=== PATIENT | female | born 1970 | race Caucasian/White ===

== ENCOUNTER → 2017-08-13 17:30 | Outpatient (CLI) | payer BC, SELFPAY | PROVIDERS: Visit Provider Otolaryngology Otolaryngology/Facial Plastic Surgery | DX: J32.9 Chronic sinusitis, unspecified (principal) | CPT/HCPCS: 87070; 87205 ==

== ENCOUNTER 2022-02-05 05:46 | Inpatient (IN) | payer BC, SELFPAY ==
--- NOTE | 2022-01-27 10:41 | CASEMGMT ---
FRANKIE VERMA Assessment: TC to pt for initial transition planning/care coordination assessment. RN CM introduced self and role at [facility], pt voices understanding and consents to assessment. Care providers, pharmacy, and demographics verified/updated. Admitting Dx: lumbar 4-5 posterior lumbar interbody fusion PCP:FELA Santoro Specialists:derrick Mcelroy Pharmacy: [facility] Retail while hospitalized Insurance: [place] Prescription Benefit: yes LW/HPOA: Pt states she has a LW/DPOA and her DPOA is her Santhosh Moreno. She is aware this is not on file at [facility] and she may bring in day of surgery to be scanned into her chart. LNOK: Santhosh Moreno, Living Arrangements: Pt lives with , mother and aunt in a two story house with 1 step to enter with a rail. Pt states she can stay on the main level of the home post surgery. Pt reports being I in ADL's currently. Transportation: Pt drives self and denies concerns with transportation. Pt can transport pt post surgery. DME/HHC/SNF: Pt has a cane and standard walker at home but does not use. Pt denies hx of HHC or SNF stays. Pt states no concerns with going home at time of dc. Pt states no further concerns/needs. CM to follow. Advised pt to ask CM if any further question/concerns/needs arise, voices understanding. Pt Goal: Home Plan: Home
[2022-02-05] VITALS (17 sets, daily range): BP systolic 115–135; BP diastolic 61–80; PULSE 72–94; RESP 14–18; TEMP 36.4–37.2; O2SAT 92–96; BMI 37.8
--- NOTE | 2022-02-05 06:30 | RAD_ITS ---
PROCEDURE: L4-L5 fusion. DATE OF EXAMINATION: 02/05/2022. INDICATION: Female, 51 years old. Chronic low back pain. FLUOROSCOPY TIME (if supplied): (1 minute and 57 seconds.) minutes/seconds. 4 images were obtained. RAD/Lumbar Spine 2 or 3 Views IMPRESSION: Intraoperative imaging provided for fusion at the L4-L5 level with prosthetic disc placement. Electronically Signed: Andre Gaffney MD at 12:41 EDT ,
[2022-02-05] MEDS: Lactated Ringers 1,000 ML 15 ML IV ×2 (06:58→08:15)
--- NOTE | 2022-02-05 07:05 | OP.PCM_ITS ---
Report of Operation Date of Procedure: 02/05/22 Pre-Operative Diagnosis: 1. Lumbar stenosis, L4-5 with spondylosis 2. Lumbar degenerative disc disease L4-5 Post-Operative Diagnosis: 1. Lumbar stenosis, L4-5 with spondylosis 2. Lumbar degenerative disc disease L4-5 Surgery/Procedure Performed:: 1. L4-5 posterior lumbar interbody fusion 2. Insertion of intervertebral biomechanical device x1 3. Structural allograft for spinal fusion 4. L4 bilateral laminectomies, foraminotomies, facetectomies, decompression of nerve roots 5. L4-5 posterior lateral fusion 6. Pedicle screw fixation 7. Local autograft for spinal fusion 8. Neuro monitoring bilateral upper and bilateral lower extremities Description of Surgical Findings:: The patient is a 51-year-old female with intractable back and leg pain. Image studies confirm the above diagnoses. She has failed conservative treatment to include medication physical therapy and injections. The patient opted for operative intervention understanding the risk to include but not limited to infection, bleeding, damage to nerves arteries and veins, possibility of spinal fluid leak, nonunion, hardware failure, continued pain, need for further surgery, deep vein thrombosis, pulmonary embolism, heart attack, risk of stroke or . The patient was identified in the preoperative holding area. There she received preoperative IV antibiotics Ancef and was then transferred to the operative suite. Once in the operative suite after general endotracheal anesthesia was established the patient was positioned prone on the Luis Manuel operating table. All bony prominences were padded accordingly. The lumbar spine was prepped and draped in a standard fashion. Bear hugger's were not turned on until the drapes were placed and sealed with Ioban. A midline incision was made and taken to the level of the lumbodorsal fascia. The fascia was divided and subperiosteal dissection was taken down to the level of the transverse processes of L4 and L5 bilaterally. Deep retractors were placed. A bone scalpel was used to make cuts in the lamina of L4 and then a series of rongeurs and Kerrisons were used removing the spinous process and lamina at L4. Then facetectomies of greater t michael 50% were performed as well as foraminotomies decompressing the bilateral nerve roots. Given the severity of the stenosis I needed to perform wide bilateral laminectomies and near complete facetectomies in order to decompress the neural elements thus creating instability necessitating the fusion. I then proceeded with interbody fusion. The nerve roots and dura were identified and retracted medially. A knife was used to perform an annulotomy at L4-5. An endplate elevator, curettes and pituitaries were utilized to remove disc material. Endplates were prepared with a rasp. An appropriate sized intervertebral peek cage device measuring 9 mm was packed with morselized cancellous allograft and impacted into position completing the posterior lumbar interbody fusion at L4-5. I then proceeded with pedicle screw fixation. Starting points were found at the junction of the superior articular process and transverse processes of L4 and L5. A power bur was used for the starting points. Pedicle probes were placed bilaterally and then 6.5 x 50 mm screws were placed bilaterally at L4 and L5. The screws were tested with intraoperative neurophysiologic monitoring and tested within normal limits. Connecting rods were placed and secured with set screws. I then proceeded with the posterior lateral fusion. This was accomplished by decorticating the transverse processes bilaterally at L4 and L5. This decorticated bone was then bridged with local autograft from the decompression as well as morselized cancellous allograft therefore completing the posterior lateral fusion at L4-5. The incision was thoroughly irrigated. Tisseel was placed over the dura as a hemostatic agent. A deep drain was placed. The fascia was closed with #1 Vicryl, subcutaneous with 2-0 Vicryl and skin with 2-0 nylon. A sterile dressing was applied with 4 x 4's ABD and tape. Sponge instrument and needle counts were correct at the end the case. The patient was extubated and taken to the PACU without incident Surgeon: Dharmesh Mcelroy Type of Anesthesia: General Drains: Hemovac Estimated Blood Loss (mL): 250 cc Fluids Replaced: 2600 cc Grafts/Implants Used: Unified spine, talos, vitae os, DBM Complications None Admit VTE Documentation VTE Present on Admission: No
--- NOTE | 2022-02-05 07:05 | PCM.PN.ORT ---
Subjective Subjective The patient was seen and examined postoperatively in the PACU. She is lying in bed resting comfortably. Her pain is controlled. She denies any other complaints including numbness tingling or weakness Objective Data Objective Data Vital Signs: Vital Signs Temp Pulse Resp BP Pulse Ox O2 Del Method 98.3 F 77 16 123/77 H 96 Room Air 02/05/22 06:48 02/05/22 06:48 02/05/22 06:48 02/05/22 06:48 02/05/22 06:48 02/05/22 06:48 Oxygen Delivery Method Room Air Weight: 220 lb 3.869 oz Body Mass Index (BMI) 37.8 Physical Exam Const alert, oriented x3 and no apparent distress General Appearance: cooperative, comfortable and well kempt HEENT normocephalic and head/scalp atraumatic Eyes EOMs intact bilaterally and conjunctivae normal Neck full ROM General: normal visual inspection Chest inspection of chest normal and palpation of chest normal Resp normal respiratory effort and normal air movement Cardio regular rate, regular rhythm and peripheral pulses 2+ throughout GI soft to palpation, non-tender and non-distended Back/Spine Back/Spine Narrative: Dressing clean dry and intact. Drain in place and functioning with small amount of serosanguineous fluid present Cervical Spine: cervical ROM normal Thoracic Spine / Upper Back: normal to inspection Lumbar Spine / Lower Back: normal to inspection Extremity normal to inspection, full ROM, normal capillary refill, no clubbing, cyanosis or edema and no calf tenderness Skin no rashes or lesions noted General Skin Exam: no breakdown Neuro oriented x3, CN's II-XII intact bilaterally, moves all extremities, no focal motor deficits, no sensory deficits noted and deep tendon reflexes 2+ bilaterally Motor Exam: strength 5/5 throughout Assessment & Plan Assessment/Plan (1) Lumbar stenosis: PLAN: Plan Okay to admit to floor See orders Pain control and mobilization as tolerated Back brace on at all times while out of bed Continue antibiotics while drain in place Discharge planning, likely home tomorrow
--- NOTE | 2022-02-05 07:05 | PCM.DC.SUM ---
Providers Date of Admission: 02/05/22 Primary Care Physician: FELA Santoro Reason For Visit: lumbar 4-5 posterior lumbar interbody fusion Diagnosis Discharge Diagnosis (1) Lumbar stenosis: Status: Acute Code(s): M48.061 - Spinal stenosis, lumbar region without neurogenic claudication Medications at Discharge Home Medications hydrocodone-acetaminophen 5-325mg 5mg-325mg 1 tab PO Q6H 7 days #28 tabs 02/06/22 Hospital Course Operations - (L4-5 posterior lumbar interbody fusion, decompression, posterior spinal fusion with instrumentation, use of allograft) Summary of Care Provided Minutes Spent on Discharge: 15 Hospital Course: The patient is a 51-year-old female who underwent an L4-5 posterior lumbar interbody fusion, decompression, posterior spinal fusion, use of allograft on 02/05/2022. She was subsequently admitted. The hospitalist was consulted for medical management. She progressed well. Her pain was controlled and she was mobilizing well. Her drain was pulled on postoperative day 1. No significant medical issues were reported and she was subsequently discharged home upon 02/06/2022 to follow-up with Dr. Mcelroy in 3 weeks Physical Exam Const alert, oriented x3 and no apparent distress General Appearance: cooperative, comfortable and well kempt HEENT normocephalic and head/scalp atraumatic Eyes EOMs intact bilaterally and conjunctivae normal Neck full ROM General: normal visual inspection Chest inspection of chest normal and palpation of chest normal Resp normal respiratory effort and normal air movement Effort and Inspection: able to speak in complete sentences Cardio regular rate and peripheral pulses 2+ throughout GI soft to palpation, non-tender and non-distended Back/Spine Back/Spine Narrative: Dressing clean dry and intact. Incision well approximated with interrupted sutures in place. No tenderness erythema drainage or fluctuance Cervical Spine: cervical ROM normal Thoracic Spine / Upper Back: normal to inspection Lumbar Spine / Lower Back: normal to inspection Extremity normal to inspection, full ROM, normal capillary refill, no clubbing, cyanosis or edema and no calf tenderness Skin no rashes or lesions noted General Skin Exam: no breakdown Neuro oriented x3, CN's II-XII intact bilaterally, moves all extremities, no focal motor deficits, no sensory deficits noted and deep tendon reflexes 2+ bilaterally Motor Exam: strength 5/5 throughout Weight / BMI Weight Weight: 220 lb 3.869 oz Body Mass Index (BMI) 37.8 D/C Instructions Discharge Diet: No restrictions Weight Bearing Status: Weight bearing as tolerated Lifting Restricted to (Lbs): 5 Additional Activity Instructions: No repetitive bending twisting or lifting greater than 5 pounds. Wear back brace on at all times while out of bed Call your doctor if your incision/area has: Continuous Slow Oozing, Sudden Increased Bleeding, Increased Pain/ Swelling, Increased Redness, Foul Smelling Discharge and Swelling at the incision site Call your doctor if you observe: Fever of 101 or Higher, Coldness, Increased Pain, Numbness or Tingling, Change in Color, Inability to urinate, Inability to have a bowel movement, Using more than 1 pad per hour, Shortness of breath, Dizziness, Fainting spells, Swelling in the ankles, Chest pain, Prolonged hiccupping, Increased palpitations (irregular heartbeat), Calf discomfort and Uncontrolled pain Cleanse incision/area with: Do not get Incision Wet and Keep Dressing Clean & Dry Additional Dressing/Incision Instructions: Change dressing daily with iodine gauze and tape. [place] dressing to shower Please Follow Up With: Dharmesh Mcelroy DO When: 3 weeks Meaningful Use Info Meaningful Use Diagnoses (Choose all that apply): None applicable Discharge Plan Admission Admit Date/Time: 02/05/22 05:46 Attending Provider: Dharmesh Mcelroy Primary Care Provider: Stephanie Zhao Consulting Providers: Ezio Frances Instructions Additional Instructions / Restrictions: 1. During your procedure, you received sedation through your IV. Please follow these instructions for the next 24 hours: Do not drive a motor vehicle, do not drink any alcoholic beverages, and do not sign any legal documents or make personal or business decisions. A responsible adult should stay with you at least 6 hours after the procedure. 2. Keep your surgical site/incision clean and the dressing dry and intact. Change dressing daily. You may use an ice pack at the surgical site to reduce any swelling or discomfort. 3. Monitor the incision site for any signs or symptoms of infection. Watch for redness, excessive swelling or drainage, or continued pain at the incision site after 3 days. Contact your physician immediately for a fever, chills or a temperature of 101.5? F or greater. 4. Take your medication exactly as prescribed by your physician. Do not attempt to wean yourself off any of your medications even though your pain is improving. This process needs to be carefully monitored by your doctor. Take any antibiotics prescribed exactly as directed and until they are gone. 5. Avoid stretching, bending, pulling, twisting or any sudden movements. Do not bend or twist at the waist. Wear your back brace at all times while out of bed 6. No lifting greater than 5 pounds. 7. Do not operate a motor vehicle, equipment or a power tool while taking pain medication 8. Do not have any manipulation done by a chiropractor or any other physician without first consulting with the surgeon 9. Please contact our office if you are even scheduled for a CT scan or an MRI. 10. Please call us if you have any questions, problems or concerns. Discharge Orders/Prescriptions Prescriptions: New hydrocodone-acetaminophen 5-325 mg tablet 1 tab PO Q6H 7 Days Qty: 28 0RF Referrals / Follow Up: Dharmesh Mcelroy DO [Med Staff - Active Staff] - Stephanie Zhao, PA [Primary Care Provider] - Disposition Disposition (needs filled in before D/C Order can be placed): Home, Self Care
[2022-02-05] MEDS: Cefazolin 2 GM in 0.9% Normal Saline 100 ML IV (08:08)
[2022-02-05] MEDS: THROMBIN (RECOMBINANT) 20,000 UNIT VIAL 20000 UNIT TOPICAL (08:20)
[2022-02-05] MEDS: Heparin 10,000 UNITS/10 ML Vial 10000 UNITS (08:20)
[2022-02-05] MEDS: Lactated Ringers 1,000 ML 100 ML IV ×2 (09:31→16:12)
[2022-02-05] MEDS: Cefazolin 1 GM/50 ML BAG IV (16:12)
[2022-02-05] MEDS: Acetaminophen 500 MG Tablet 1000 MG PO ×2 (16:12→22:35)
[2022-02-05] MEDS: 0.9% Saline Lock 10 ML Syringe IV (19:09)
[2022-02-06 00:02] VITALS: PULSE 63
[2022-02-06] MEDS: Cefazolin 1 GM/50 ML BAG IV (01:04)
[2022-02-06 02:43] VITALS: BP 98/58; PULSE 72; RESP 16; TEMP 36.8; O2SAT 94
[2022-02-06 04:08] VITALS: PULSE 74
[2022-02-06] MEDS: Acetaminophen 500 MG Tablet 1000 MG PO (06:13)
[2022-02-06 06:43] VITALS: BP 118/72; PULSE 81; RESP 16; TEMP 36.8; O2SAT 96
[2022-02-06 07:00] VITALS: PULSE 86
[2022-02-06] MEDS: Ensure Surgery 237 ML LIQUID PO (08:10)
[2022-02-06 10:00] VITALS: BP 104/60; PULSE 78; PULSE 79; RESP 18; TEMP 37.1; O2SAT 98
--- NOTE | 2022-02-06 10:12 | CASEMGMT ---
FRANKIE CM in to pt room, pt dressed and ready for dc. Pt has a FWW at home should she need it. Pt denies any homegoing needs at this time.
[2022-02-06] MEDS: oxyCODONE 5 MG Tablet PO (10:31)
== END 2022-02-06 10:52 | disposition home or self-care (01) | DRG 460 ==
LOC: ACINP 07:10 → MS3 02-06 09:02
PROVIDERS: Admitting Provider Orthopaedic Surgery; PCP Physician Assistant; Referring Provider Orthopaedic Surgery; Visit Provider Orthopaedic Surgery
PROC: 0SG00AJ Fusion of Lumbar Vertebral Joint with Interbody Fusion Device, Posterior Approach, Anterior Column, Open Approach (ICD-10-PCS; CPT 22630; principal; 2022-02-05 07:00)
DX: M48.061 Spinal stenosis, lumbar region without neurogenic claudication (principal); M41.86 Other forms of scoliosis, lumbar region; M46.96 Unspecified inflammatory spondylopathy, lumbar region; M47.816 Spondylosis without myelopathy or radiculopathy, lumbar region; M51.36 Other intervertebral disc degeneration, lumbar region; M51.26 Other intervertebral disc displacement, lumbar region; Z92.241 Personal history of systemic steroid therapy; Z97.3 Presence of spectacles and contact lenses; Z98.1 Arthrodesis status
CPT/HCPCS: 72020; 72100; 76000; 99251; 99406; C1776; J7120; A4216; G0463

== ENCOUNTER 2024-02-08 08:28 | Day surgery (SDC) | payer BC, SELFPAY ==
[2024-02-08] VITALS (7 sets, daily range): BP systolic 106–109; BP diastolic 71–91; PULSE 71–89; RESP 12–18; TEMP 35.6–36.7; O2SAT 92–100; BMI 26.4
--- NOTE | 2024-02-08 08:39 | PRE.ANES_ITS ---
ASA Classification* ASA Classification ASA Classification: 2 Assessment & Plan Anesthesia* Anesthesia Assessment Anesthesia Assessment: Discussed sedation and/or anesthesia options, risks, benefits, and alternatives with patient/parents/legal guardian/POA. Questions invited. The patient/parents/legal guardian/POA seems to understand and agrees to proceed with anesthesia plan. Reviewed the physical assessment, medical history, allergy history and patient home medications list prior to surgery/procedure/anesthetic and documented any changes. Performed airway and anesthesia risk assessments. 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 When Was Last Pacemaker Check QUESTION #4 FULL TEXT: You/Your Family Experience fever (hyperthermia) with Anesthesia Last Oral Intake Last Oral intake: Last Oral Intake NPO since Meds taken in AM with sips of water? 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 Female Yes 02/04/24 10:39 HX of Motion Sickness No 02/04/24 10:39 HX of N/V After Surgery No 02/04/24 10:39 Non-Smoker No 02/04/24 10:39 Duration of Surgery greater No 02/04/24 10:39 than 60 minutes Number of Risk Factors 1 02/04/24 10:39 PONV Score Low Risk 02/04/24 10:39 Height & Weight Height & Weight: Anesthesia: Height & Weight Height 5 ft 4 in 01/26/24 08:52 Respiratory Assessment Respiratory Assessment - forge utility worker: Respiratory Tract Infection Hx - forge utility worker Hx Respiratory Tract Infection No 02/04/24 10:39 STOP Sleep Apnea STOP Sleep Apnea - forge utility worker: STOP Sleep Apnea - forge utility worker Hx Hypertension No 02/04/24 10:39 Hx Sleep Apnea No 02/04/24 10:39 CPAP BIPAP Do you snore loudly (louder No 02/04/24 10:39 than talking or can be heard Do you often feel tired/ No 02/04/24 10:39 fatigued/ sleepy during daytime? Has anyone observed you stop No 02/04/24 10:39 breathing during sleep? STOP Results Negative 02/04/24 10:39 QUESTION #5 FULL TEXT : Do you snore loudly (louder than talking or can be heard through closed doors)? 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 Specify any problems Hx of Preganancy in last 3 N/A 02/04/24 10:39 Months Nurse Filling Out Transfusion NBUCHER 02/04/24 10:39 & Questions: Date: 02/04/24 02/04/24 10:39 Time: 10:40 02/04/24 10:39 Patient unable to answer at this time (ie. confused, unrespo /Reproduction History /Reproductive History - forge utility worker: /Reproductive Hx- forge utility worker Hx Now Gestational Age (in weeks): EDC: Hx Hx Para Hx Section SAB No 02/04/24 10:39 Active Medications Active Medications: Current Medications Generic Name Dose Route Start Last Admin Trade Name Freq PRN Reason Stop Dose Admin Lactated Ringer's 1,000 mls @ 15 mls/hr 02/08/24 08:45 IV .Q48H JEROME PFSH Medical History Arthritis History of hiatal hernia Gastric reflux Heartburn Wears glasses Alcohol use History of steroid therapy Easy bruising Back pain Smoker History of stress test Home Medications ?Medication ?Instructions ?Recorded ?Last Taken ?Type semaglutide (weight loss) 1.7 1.7 mg subcut TU 01/26/24 02/01/24 History mg/0.75 mL subcutaneous pen injector (Wegovy) acetaminophen 500 mg tablet 500 mg PO Q6H PRN pain 02/04/24 Unknown History (Acetaminophen Extra Strength) Allergy/AdvReac Type Severity Reaction Status Date / Time No Known Allergies Allergy Verified 02/04/24 10:37 Family History Mother Diabetes Father Diabetes Surgical History History of colonoscopy History of esophagogastroduodenoscopy (EGD) History of History of selective injection of anesthetic agent around lumbar nerve root History of total right knee replacement History of arthroscopy of right knee History of fusion of cervical spine History of eye surgery History of carpal tunnel surgery History of bladder repair surgery History of hysterectomy History of cholecystectomy History of tonsillectomy Social History Smoking Status: Current some day smoker tobacco type: cigarettes and e-cigarett es alcohol intake: never substance use type: does not use Review of Systems (Anesthesia) ROS Narrative System reviewed and no additional complaints, except as documented.
[2024-02-08] MEDS: Lactated Ringers 1,000 ML 15 ML IV (08:59)
--- NOTE | 2024-02-08 09:45 | IMM_PTH ---
PATIENT: ROSHNI HERNÁNDEZ LOC: EN U#:[id number] AGE/SX: 53/F ROOM: RE02/08/[address]: Dr. Luis Green MD : 1970 BED: DIS: 02/08/2024 SPEC #: [id number] RECD: 02/09/24 08:23 STATUS: RADHIKA REQ #: [id number] JACQUE: 02/08/24 09:[address]: Luis Green DEPT: IMMUNOHISTOCHEMISTRY RECD BY: Hugo Muñoz ENTERED: 02/09/24 08:23 SP TYPE: IMMUNO OTHR DR: FELA Santoro Tissues: A - Gastric mucous membrane Procedures: H Pylori (initial) PHYSICIAN & INSTITUTION [place] [address] SPECIMEN INFORMATION: Tissue Source: A- Antrum biopsy Clinical Info: Rectal bleeding Specimen Number: [id number] CPT code: 53314 METHODOLOGY: Deparaffinized sections of prefer/formalin-fixed tissue or PAP/DQ stained slides are incubated with monoclonal/polyclonal antibodies/oligonucleotide probes. Localization is made via biotin free immunoperoxidase method. Appropriate controls are performed and reacted as expected. Results on target cell population are indicated in the following table: RESULTS: ANTIBODY / CLONE RESULT Block A H Pylori (polyclonal) negative These tests were developed and their performance characteristics determined by [facility]. They may not have been cleared or approved by the U.S. Food and Drug Administration. The FDA has determined that such clearance or approval is not necessary. The above immunohistochemical/dualISH markers are ordered and reviewed by the Pathologist. INTERPRETATION: A. Antrum, biopsy: Negative for Helicobacter pylori organisms. 02/10/2024
--- NOTE | 2024-02-08 09:45 | COLBX_PTH ---
PATIENT: ROSHNI HERNÁNDEZ LOC: EN U#:[id number] AGE/SX: 53/F ROOM: RE02/08/[address]: Dr. Luis Green MD : 1970 BED: DIS: 02/08/2024 SPEC #: [id number] RECD: 02/08/24 18:13 STATUS: RADHIKA SOLOMON #: [id number] JACQUE: 02/08/24 09:[address]: Luis Green DEPT: SURGICAL PATHOLOGY RECD BY: Mike Manzanares ENTERED: 02/09/24 10:01 SP TYPE: COLON BX OTHR DR: FELA Santoro Tissues: A - Gastric mucous membrane B - Stomach, NOS C - Esophagus, NOS Procedures: Special Stain Group I Surgery Specimen Level IV Alcian Blue/PAS (control) HEADER OPERATION: Colonoscopy, EGD with biopsies PRE-OP DIAGNOSIS: Rectal bleeding TISSUE SUBMITTED: A- Antrum biopsy, B- Stomach polyp biopsy x2, C- GE junction biopsy MICROSCOPIC DIAGNOSIS A. Gastric antrum, biopsy: Mild chronic gastritis. See comment. B. Gastric polyp, biopsy: Consistent with fundic gland polyp. C. Gastroesophageal junction, biopsy: Mild chronic inflammation. Focal changes of reflux. No evidence of goblet cell metaplasia. See comment. 02/10/2024 COMMENT A. The results of immunohistochemistry for Helicobacter pylori will be reported separately ([id number]). C. Alcian blue/PAS stain with matched control is used in the evaluation of the specimen. MICROSCOPIC DESCRIPTION Slides are reviewed. GROSS DESCRIPTION A. Received in fixative is one container labeled with the patient's name and designated Antrum biopsy. The specimen consists of one irregular fragment of light martinez soft tissue that measures 0.4 x 0.3 x 0.1 cm. The specimen is totally submitted in one cassette. B. Received in fixative is one container labeled with the patient's name and designated Stomach polyp biopsy x2. The specimen consists of two irregular fragments of light martinez soft tissue that in aggregate measure 0.7 x 0.4 x 0.2 cm. The specimen is totally submitted in one cassette. C. Received in fixative is one container labeled with the patient's name and designated GE junction biopsy. The specimen consists of two irregular fragments of light martinez soft tissue that in aggregate measure 0.5 x 0.5 x 0.1 cm. The specimen is totally submitted in one cassette. SJ.mr 02/09/2024 TC:3 CPT:85715i3,93631
--- NOTE | 2024-02-08 10:13 | PCM.HP.STD ---
HPI - General General Date of Admission: 02/08/24 Date of Service: 02/08/24 Chief Complaint: Blood per rectum HPI Narrative ROSHNI HERNÁNDEZ, is a 53 F who presents for EGD and colonoscopy. She has had a couple recent episodes of blood per rectum. She also history of upper GI discomfort/reflux. She presents today for EGD and colonoscopy. [facility] Medical History Arthritis History of hiatal hernia Gastric reflux Heartburn Wears glasses Alcohol use History of steroid therapy Easy bruising Back pain Smoker History of stress test Home Medications ?Medication ?Instructions ?Recorded ?Last Taken ?Type semaglutide (weight loss) 1.7 1.7 mg subcut TU 01/26/24 02/01/24 History mg/0.75 mL subcutaneous pen injector (Wegovy) acetaminophen 500 mg tablet 500 mg PO Q6H PRN pain 02/04/24 Unknown History (Acetaminophen Extra Strength) Allergy/AdvReac Type Severity Reaction Status Date / Time No Known Allergies Allergy Verified 02/08/24 08:53 Family History Mother Diabetes Father Diabetes Surgical History History of colonoscopy History of esophagogastroduodenoscopy (EGD) History of History of selective injection of anesthetic agent around lumbar nerve root History of total right knee replacement History of arthroscopy of right knee History of fusion of cervical spine History of eye surgery History of carpal tunnel surgery History of bladder repair surgery History of hysterectomy History of cholecystectomy History of tonsillectomy Social History Smoking Status: Current some day smoker tobacco type: cigarettes and e-cigarettes alcohol intake: never substance use type: does not use Vital Signs Vital Signs Vital Signs: 02/08/24 08:54 02/08/24 08:54 Temperature 98.1 F Temperature Source Temporal Pulse Rate 71 Respiratory Rate 16 Respiratory Pattern Normal Blood Pressure 108/71 Blood Pressure Mean 83 Blood Pressure Source Monitor Blood Pressure Position Sitting Blood Pressure Location Left Arm Pulse Ox 100 Oxygen Delivery Method Room Air Weight Weight: 154 lb 1.65 oz Body Mass Index (BMI) 26.4 Physical Exam Const alert, oriented x3 and no apparent distress HEENT normocephalic Eyes PERRL Neck full ROM Resp normal air movement GI normal to inspection, nondistended, normoactive bowel sounds Assessment & Plan Assessment/Plan (1) Rectal bleeding: PLAN: Plan The patient is a 53-year-old female with history of recent blood per rectum. She was referred to me for EGD and colonoscopy. We discussed the details of the planned procedure and she wishes to proceed. Procedure will begin momentarily. Charges/Coding Visit Charges Inpatient E&M: 50533 Init Hosp L1
--- NOTE | 2024-02-08 11:16 | PCM.POST.ANE ---
Anesthesia: Postop Eval I Current Vital Signs Temperature: 97.9 F Pulse Rate: 89 Blood Pressure: 106/72 Respiratory Rate: 16 Pulse Ox: 97 Oxygen Delivery Method: Room Air Assessment Airway patent: Yes Spontaneous unlabored respirations: Yes Mental status: Asleep nausea: No Vomiting: No Anesthesia Complication: No Fluid Hydration Crystalloid volume administer (ml): 900 Total IV fluid infused: 900 Progress Note Anesthesia document: Postop Eval 1 completed: Yes
--- NOTE | 2024-02-08 11:23 | OP.CCLET_ITS ---
02/08/2024 Stephanie Zhao Re : Upper GI endoscopy procedure for Stephanie Zhao This procedure was performed on Thursday, February 08, 2024. My impressions and recommendations are as follows: Impressions : - No gross lesions in the entire examined duodenum. - Two gastric polyps. Resected and retrieved. Biopsied. - Normal esophagus. Biopsied. - The examination was otherwise normal. Recommendations : - Discharge patient to home. - High fiber diet indefinitely. - Return to my office PRN. - Continue present medications. My findings are described in the full procedure note, which is enclosed. If I can be of further assistance, please feel free to contact me at . Sincerely, Luis Green MD 02/08/2024 11:22:34 AM This report has been signed electronically.
--- NOTE | 2024-02-08 11:23 | OP.EGD_ITS ---
Patient Name: Stephanie Moreno Procedure Date: 02/08/2024 10:04 AM Date of : 1970 Age: 53 Procedure: Upper GI endoscopy Indications: Follow-up of esophageal reflux Providers: Luis Green MD Referring MD: Luis Green MD Medicines: Propofol per Anesthesia Patient Profile: Refer to note in patient chart for documentation of history and physical. Patient has symptoms of chronic heartburn. Refer to note in patient chart for documentation of history and physical. Complications: No immediate complications. Estimated blood loss: Minimal. Procedure: Pre-Anesthesia Assessment: - Prior to the procedure, a History and Physical was performed, and patient medications and allergies were reviewed. The patient's tolerance of previous anesthesia was also reviewed. The risks and benefits of the procedure and the sedation options and risks were discussed with the patient. All questions were answered, and informed consent was obtained. Prior Anticoagulants: The patient has taken no anticoagulant or antiplatelet agents. ASA Grade Assessment: II - A patient with mild systemic disease. After reviewing the risks and benefits, the patient was deemed in satisfactory condition to undergo the procedure. After obtaining informed consent, the endoscope was passed under direct vision. Throughout the procedure, the patient's blood pressure, pulse, and oxygen saturations were monitored continuously. The Endoscope was introduced through the mouth, and advanced to the second part of duodenum. The upper GI endoscopy was accomplished without difficulty. The patient tolerated the procedure well. Moderate Sedation: See the other procedure note for documentation of moderate sedation with intraservice time. Scope In: 10:24:09 AM Scope Out: 10:40:27 AM Total Procedure Duration Time 0 hours 16 minutes 18 seconds Findings: No gross lesions were noted in the entire examined duodenum. Two 3 mm semi-sessile polyps with no bleeding and no stigmata of recent bleeding were found in the gastric body. These polyps were removed with a cold biopsy forceps. Resection and retrieval were complete. Verification of patient identification for the specimen was done by the multimedia technician using the patient's name, date and medical record number. Estimated blood loss was minimal. Biopsies of the antrum for histology were taken with a cold forceps for evaluation of Hpylori. Verification of patient identification for the specimen was done by the multimedia technician using the patient's name, date and medical record number. Estimated blood loss was minimal. . The examined esophagus was normal. Mucosa was biopsied with a cold forceps for histology randomly at the gastroesophageal junction. Verification of patient identification for the specimen was done by the multimedia technician using the patient's name, date and medical record number. Estimated blood loss was minimal. The exam was otherwise without abnormality. Impression: - No gross lesions in the entire examined duodenum. - Two gastric polyps. Resected and retrieved. Biopsied. - Normal esophagus. Biopsied. - The examination was otherwise normal. Recommendation: - Discharge patient to home. - High fiber diet indefinitely. - Return to my office PRN. - Continue present medications. Procedure Code(s): --- Professional --- 16063, Esophagogastroduodenoscopy, flexible, transoral; with biopsy, single or multiple Diagnosis Code(s): --- Professional --- K31.7, Polyp of stomach and duodenum K21.9, Gastro-esophageal reflux disease without esophagitis CPT copyright 2021 [employer]. All rights reserved. The codes documented in this report are preliminary and upon campaign analyst review may be revised to meet current compliance requirements. Luis Green MD 02/08/2024 11:22:34 AM This report has been signed electronically. Number of Addenda: 0 Note Initiated On: 02/08/2024 10:04 AM
--- NOTE | 2024-02-08 11:28 | OP.CCLET_ITS ---
02/08/2024 Stephanie Zhao Re : Colonoscopy procedure for Stephanie Zhao This procedure was performed on Thursday, February 08, 2024. My impressions and recommendations are as follows: Impressions : - The entire examined colon is normal on direct and retroflexion views. - No specimens collected. Recommendations : - Discharge patient to home (ambulatory). - High fiber diet indefinitely. - Repeat colonoscopy in 7-10 years for screening purposes. - Return to my office PRN. - Continue present medications. My findings are described in the full procedure note, which is enclosed. If I can be of further assistance, please feel free to contact me at . Sincerely, Luis Green MD 02/08/2024 11:27:31 AM This report has been signed electronically.
--- NOTE | 2024-02-08 11:28 | OP.COLON_ITS ---
Patient Name: Stephanie Moreno Procedure Date: 02/08/2024 10:41 AM Date of : 1970 Age: 53 Procedure: Colonoscopy Indications: Screening for colorectal malignant neoplasm Providers: Luis Green MD Referring MD: Lusi Green MD Medicines: Propofol per Anesthesia Patient Profile: Refer to note in patient chart for documentation of history and physical. Patient has symptoms of chronic heartburn. Refer to note in patient chart for documentation of history and physical. Last Colonoscopy: 5 years ago. Complications: No immediate complications. Estimated blood loss: None. Procedure: Pre-Anesthesia Assessment: - Prior to the procedure, a History and Physical was performed, and patient medications and allergies were reviewed. The patient's tolerance of previous anesthesia was also reviewed. The risks and benefits of the procedure and the sedation options and risks were discussed with the patient. All questions were answered, and informed consent was obtained. Prior Anticoagulants: The patient has taken no anticoagulant or antiplatelet agents. ASA Grade Assessment: II - A patient with mild systemic disease. After reviewing the risks and benefits, the patient was deemed in satisfactory condition to undergo the procedure. After I obtained informed consent, the scope was passed under direct vision. Throughout the procedure, the patient's blood pressure, pulse, and oxygen saturations were monitored continuously. The adult colonoscope was introduced through the anus and advanced to the cecum, identified by the appendiceal orifice, ileocecal valve and palpation. The ileocecal valve, appendiceal orifice, and rectum were photographed. The entire colon was well visualized. The colonoscopy was performed without difficulty. The patient tolerated the procedure well. The quality of the bowel preparation was adequate. Moderate Sedation: See the other procedure note for documentation of moderate sedation with intraservice time. Scope In: 10:42:46 AM Scope Withdrawal Time 0 hours 6 minutes 57 seconds Scope Out: 11:08:20 AM Total Procedure Duration Time 0 hours 25 minutes 34 seconds Findings: The perianal and digital rectal examinations were normal. The entire examined colon appeared normal on direct and retroflexion views. Multiple small and large-mouthed diverticula were found in the sigmoid colon. Impression: - The entire examined colon is normal on direct and retroflexion views. - No specimens collected. Recommendation: - Discharge patient to home (ambulatory). - High fiber diet indefinitely. - Repeat colonoscopy in 7-10 years for screening purposes. - Return to my office PRN. - Continue present medications. Procedure Code(s): --- Professional --- 48329, Colonoscopy, flexible; diagnostic, including collection of specimen(s) by brushing or washing, when performed (separate procedure) Diagnosis Code(s): --- Professional --- Z12.11, Encounter for screening for malignant neoplasm of colon CPT copyright 2021 [employer]. All rights reserved. The codes documented in this report are preliminary and upon analytics intern review may be revised to meet current compliance requirements. Luis Green MD 02/08/2024 11:27:31 AM This report has been signed electronically. Number of Addenda: 0 Note Initiated On: 02/08/2024 10:41 AM
--- NOTE | 2024-02-08 16:30 | PCM.POSTANE2 ---
Anesthesia Postop Eval I Sum Postop Eval Completion status Anesthesia document: Postop Eval 1 completed: Yes Anesthesia Postop Eval I Summary Anesthesia Postop Eval I Summary: Anesthesia Postop Eval I: Assessment Summary Airway patent Yes 02/08/24 11:17 [email or web address] Spontaneous unlabored Yes 02/08/24 11:17 [email or web address] respirations Mental status Asleep 02/08/24 11:17 [email or web address] nausea No 02/08/24 11:17 [email or web address] Vomiting No 02/08/24 11:17 [email or web address] Anesthesia Postop Eval I: Fluid Summary Crystalloid volume administer 900 02/08/24 11:17 [email or web address] (ml) Colloids volume administered ( ml) Blood Product volume administered (ml) Total IV fluid infused 900 02/08/24 11:17 [email or web address] Anesthesia Postop Eval I: Summary Notes Anesthesia Complication No 02/08/24 11:17 [email or web address] Anesthesia Complication Comment: Post-operative progress note Anesthesia: Postop Eval II Evaluation Mental status: Awake and Calm Pain Level: 0 nausea: No Vomiting: No Complications Anesthesia Complication: No
== END 2024-02-08 12:00 | disposition home or self-care (01) ==
LOC: EN 08:29 → AC 08:31
PROVIDERS: PCP Physician Assistant; Referring Provider Physician Assistant; Visit Provider Surgery
PROC: 0DJD8ZZ Inspection of Lower Intestinal Tract, Via Natural or Artificial Opening Endoscopic (ICD-10-PCS; CPT 45378; principal; 2024-02-08 09:40)
DX: K62.5 Hemorrhage of anus and rectum (principal); Z90.710 Acquired absence of both cervix and uterus; K31.7 Polyp of stomach and duodenum; Z96.651 Presence of right artificial knee joint; Z90.49 Acquired absence of other specified parts of digestive tract; F17.210 Nicotine dependence, cigarettes, uncomplicated; F17.290 Nicotine dependence, other tobacco product, uncomplicated; K21.9 Gastro-esophageal reflux disease without esophagitis; K57.30 Diverticulosis of large intestine without perforation or abscess without bleeding; K29.70 Gastritis, unspecified, without bleeding
CPT/HCPCS: 45378; 43239; 88305; 88312; 88342; J7120; J2405